=== PATIENT | female | born 1965 | race Caucasian/White ===

== ENCOUNTER 2017-11-28 17:53 | Emergency (ER) | payer MEDICARE, OTHER | END 2017-11-28 19:00 | disposition home or self-care (01) | LOC: ER 17:53 | DX: L02.412 Cutaneous abscess of left axilla (principal) | CPT/HCPCS: 99283 ==

== ENCOUNTER 2017-12-03 23:03 | Emergency (ER) | payer MEDICARE, OTHER ==
[2017-12-03] MEDS: methylPREDNISolone ACETATE 80 MG/ML VIAL. IM ×2 (23:40)
[2017-12-03] MEDS: DEXAMETHASONE SOD PHOS 4 MG/ML VIAL IM ×2 (23:40)
== END 2017-12-04 00:10 | disposition home or self-care (01) ==
LOC: ER 12-04 00:10
DX: L23.89 Allergic contact dermatitis due to other agents (principal); L27.1 Localized skin eruption due to drugs and medicaments taken internally (principal); T37.0X5A Adverse effect of sulfonamides, initial encounter; F90.9 Attention-deficit hyperactivity disorder, unspecified type; F41.9 Anxiety disorder, unspecified; Y92.89 Other specified places as the place of occurrence of the external cause
CPT/HCPCS: 96372; 99284; J1040; J1100

== ENCOUNTER 2018-05-24 14:00 | Emergency (ER) | payer MEDICARE, OTHER ==
[~2018-05-24] VITALS: Ht 149.9 cm; Wt 125.2 kg
[~2018-05-24 14:00] MED LIST: AMOX500T PO; DOXY100C2 PO; HYDR-971 PO; METH4TAB2 PO; SULF1TAB24 PO
[2018-05-24 14:08] VITALS: BP 141/76
[2018-05-24] MEDS ORDERED: CLOT15CR5 TP (14:30)
--- NOTE | 2018-05-24 14:31 | PHYS DOC ---
Past Medical History Past Medical History: Anxiety, Bipolar Additional Past Medical Histor: ADHD Past Surgical History: Alcohol Use: None Drug Use: None Adult General Chief Complaint Chief Complaint: SKIN PROBLEM HPI HPI Patient is a 52 year old female who presents with an itchy rash to the bottom of her feet and her hands. The patient has thick calloused skin. She thinks that it is athlete's foot. She states that she has been using [id number] antifungal's with minimal relief. She states that it is extremely itchy. Review of Systems Review of Systems Constitutional: Denies fever or chills [] Respiratory: Denies cough or shortness of breath [] Cardiovascular: No additional information not addressed in HPI [] GI: Denies abdominal pain, nausea, vomiting, bloody stools or diarrhea [] : Denies dysuria or hematuria [] Musculoskeletal: Denies back pain or joint pain [] Integument: See history of present illness Neurologic: Denies headache, focal weakness or sensory changes [] Endocrine: Denies polyuria or polydipsia [] All other systems were reviewed and found to be within normal limits, except as documented in this note. Allergies Allergies Allergies Coded Allergies Type Severity Reaction Last Updated Verified sulfamethoxazole Allergy Mild 12/03/17 Yes trimethoprim Allergy Mild 12/03/17 Yes Physical Exam Physical Exam Constitutional: Well developed, well nourished, no acute distress, non-toxic appearance. [] Cardiovascular:Heart rate regular rhythm, no murmur [] Lungs & Thorax: Bilateral breath sounds clear to auscultation [] Abdomen: Bowel sounds normal, soft, no tenderness, no masses, no pulsatile masses. [] Skin: Thickened scaly skin to palms and soles of feet with no sign of infection Neurologic: Alert and oriented X 3, normal motor function, normal sensory function, no focal deficits noted. [] Psychologic: Affect normal, judgement normal, mood normal. [] Current Patient Data Vital Signs Vital Signs Date Time Temp Pulse Resp B/P (MAP) Pulse Ox O2 Delivery O2 Flow Rate FiO2 05/24/18 14:08 98.5 82 18 141/76 (97) 98 Room Air 98.5 EKG EKG [] Radiology/Procedures Radiology/Procedures [] Course & Med Decision Making Course & Med Decision Making Pertinent Labs and Imaging studies reviewed. (See chart for details) [] Staff Physician Addendum: I was working in the ER during the course of this patient's visit. I was available for consultation as needed, but I was not directly involved in the care of this patient. Flor Disclaimer Dragon Disclaimer This electronic medical record was generated, in whole or in part, using a voice recognition dictation system. Departure Departure Impression: Primary Impression: Fungal infection Disposition: HOME, SELF-CARE Condition: STABLE Referrals: NO PCP (PCP) Patient Instructions: Athlete's Foot, [id number] Additional Instructions: Use the cream as directed. Follow-up with your primary care provider if this is not resolving in one week. Scripts Clotrimazole/Betamethasone Dip (CLOTRIMAZOLE-BETAMETHASONE CRM) 15 Gm Cream..g. 1 DIAMOND TP BID for fungal infection, #30 GM 1 Refill Prov: YVONNE MENDEZ APRN 05/24/18 YVONNE MENDEZ APRN May 24, 2018 14:31 LAKIA PADRON MD May 24, 2018 17:46
== END 2018-05-24 14:45 | disposition home or self-care (01) ==
LOC: ER 14:00
DX: B48.8 Other specified mycoses (principal); F31.9 Bipolar disorder, unspecified; F90.9 Attention-deficit hyperactivity disorder, unspecified type; Z88.2 Allergy status to sulfonamides; Z88.8 Allergy status to other drugs, medicaments and biological substances
CPT/HCPCS: 99283

== ENCOUNTER 2018-11-22 22:01 | Emergency (ER) | payer MEDICARE, OTHER ==
[~2018-11-22] VITALS: Ht 149.9 cm; Wt 127.5 kg
[~2018-11-22 22:01] MED LIST changes: +CLOT15CR5 TP; +HYDR-3164 PO; -HYDR-971 PO
[2018-11-22 22:10] VITALS: BP 194/100
[2018-11-22] MEDS ORDERED: CEPH500T PO (22:35)
[2018-11-22] MEDS ORDERED: CLOT15CR5 TP (22:35)
--- NOTE | 2018-11-22 22:35 | PHYS DOC ---
Past Medical History Past Medical History: Anxiety, Bipolar Additional Past Medical Histor: ADHD Past Surgical History: Alcohol Use: None Drug Use: None Adult General Chief Complaint Chief Complaint: SKIN RASH/ABSCESS [facility] HPI Patient is a 53 year old female presented to the ER today for evaluation of rash on her feet and hand for over a year. Patient was seen here last year, diagnosed with athlete foot, put on antifungal cream but not getting better. Patient said she used a hand held outer diameter grinder tool and tried to scrape the harden whitish, scale rash on the bottom of her feet a few days ago and she thinks that it went to deep and it cut her her feet, now her feet became painful when she walked. patient denied any chest pain, no fever, no shortness of air. Patient denied any medical problem because she actually has not seen a doctor for a long time. Review of Systems Review of Systems Constitutional: Denies fever or chills [] Eyes: Denies change in visual acuity, redness, or eye pain [] HENT: Denies nasal congestion or sore throat [] Respiratory: Denies cough or shortness of breath [] Cardiovascular: No additional information not addressed in HPI [] GI: Denies abdominal pain, nausea, vomiting, bloody stools or diarrhea [] : Denies dysuria or hematuria [] Musculoskeletal: Denies back pain or joint pain, pain at the bottom of both feet. Integument: Positive rash on palm of hand and sole of feet. Neurologic: Denies headache, focal weakness or sensory changes [] Endocrine: Denies polyuria or polydipsia [] All other systems were reviewed and found to be within normal limits, except as documented in this note. Allergies Allergies Allergies Coded Allergies Type Severity Reaction Last Updated Verified sulfamethoxazole Allergy Mild 12/03/17 Yes trimethoprim Allergy Mild 12/03/17 Yes Physical Exam Physical Exam Constitutional: Well developed, well nourished, no acute distress, non-toxic appearance. [] HENT: Normocephalic, atraumatic, Eyes: PERRLA, EOMI, conjunctiva normal, no discharge. [] Neck: Normal range of motion, no tenderness, supple, no stridor. [] Cardiovascular:Heart rate regular rhythm, no murmur [] Lungs & Thorax: Bilateral breath sounds clear to auscultation [] Abdomen: Bowel sounds normal, soft, no tenderness, no masses, no pulsatile masses. [] Skin: thicken, whitish, scaly rash on sole of feet and palm of hands. There are two linear cut meza on bottom of both feet, tender to touch. No purulent drainage. Back: No tenderness, no CVA tenderness. [] Extremities: No tenderness, no cyanosis, no clubbing, ROM intact, no edema. [] Neurologic: Alert and oriented X 3, normal motor function, normal sensory function, no focal deficits noted. [] Psychologic: Affect normal, judgement normal, mood normal. [] Current Patient Data Vital Signs Vital Signs Date Time Temp Pulse Resp B/P (MAP) Pulse Ox O2 Delivery O2 Flow Rate FiO2 11/22/18 22:10 98.2 82 20 194/100 (131) 99 Room Air 98.2 EKG EKG [] Radiology/Procedures Radiology/Procedures [] Course & Med Decision Making Course & Med Decision Making Pertinent Labs and Imaging studies reviewed. (See chart for details) [] Dragon Disclaimer Dragon Disclaimer This electronic medical record was generated, in whole or in part, using a voice recognition dictation system. Departure Departure Impression: Primary Impression: Athlete's foot on left Additional Impressions: Athlete's foot on right Cellulitis Disposition: HOME, SELF-CARE Condition: STABLE Referrals: NO PCP (PCP) follow up with your doctor on Sunday for reevaluation. Patient Instructions: Athlete's Foot, Cellulitis Scripts Cephalexin (CEPHALEXIN) 500 Mg Tablet 1 TAB PO QID, #40 TAB Prov: JAIMIE MARTI DO 11/22/18 Clotrimazole/Betamethasone Dip (CLOTRIMAZOLE-BETAMETHASONE CRM) 15 Gm Cream..g. 1 DIAMOND TP BID, #30 GM 1 Refill Prov: JAIMIE MARTI DO 11/22/18 Problem Qualifiers JAIMIE MARTI DO November 22, 2018 22:35
== END 2018-11-22 22:45 | disposition home or self-care (01) ==
LOC: ER 22:01
DX: L03.116 Cellulitis of left lower limb (principal); L03.115 Cellulitis of right lower limb; L03.114 Cellulitis of left upper limb; L03.113 Cellulitis of right upper limb; B35.3 Tinea pedis; F31.9 Bipolar disorder, unspecified; Z88.1 Allergy status to other antibiotic agents; Z88.2 Allergy status to sulfonamides
CPT/HCPCS: 99283